=== PATIENT | female | born 1975 | race Hispanic/Latino ===

== ENCOUNTER 2018-06-16 08:24 | Outpatient (CLI) | payer BC ==
[2018-06-16 09:28] LABS: PLATELET COUNT 258 K/uL (152-353)
== END 2018-06-16 19:51 | disposition home or self-care (01) ==
LOC: LAB 08:24
PROVIDERS: Surgery Plastic and Reconstructive Surgery
DX: Z01.810 Encounter for preprocedural cardiovascular examination (principal)
CPT/HCPCS: 36415; 80053; 81000; 85027; 93005

== ENCOUNTER 2022-09-24 07:25 | Outpatient (CLI) | payer BC | END 2022-09-24 20:04 | disposition home or self-care (01) | LOC: LABW 07:25 | PROVIDERS: ATTEND Nurse Practitioner Adult Health | DX: N95.9 Unspecified menopausal and perimenopausal disorder (principal); R68.82 Decreased libido; R53.83 Other fatigue | CPT/HCPCS: 36415; 82670; 84144 ==